=== PATIENT | female | born 1980 | race Caucasian/White ===

== ENCOUNTER 2019-04-22 12:20 | Day surgery (SDC) | payer SELFPAY ==
[2019-04-21 10:27] LABS: ABSOLUTE EOSINOPHILS # (AUTO) 0.2 10^3/uL (0.0-0.6); ABSOLUTE LYMPHOCYTES (AUTO) 1.1 10^3/uL (0.5-4.7); ABSOLUTE MONOCYTES (AUTO) 0.5 10^3/uL (0.1-1.4); BASOPHILS % (AUTO) 0.4 % (0-2); EOSINOPHILS % (AUTO) 2.8 % (0-6); HEMATOCRIT 37.1 % (36.0-47.0); HEMOGLOBIN 12.6 g/dL (12.0-15.5); LYMPHOCYTES % (AUTO) 15.9 % (13-45); MEAN CORPUSCULAR HEMOGLOBIN 30.6 pg (27.0-33.4); MEAN CORPUSCULAR VOLUME 90 fl (80-97); MONOCYTES % (AUTO) 7.4 % (3-13); PLATELET COUNT 183 10^3/uL (150-450); RED BLOOD COUNT 4.13 10^6/uL (3.72-5.28); RED CELL DISTRIBUTION WIDTH 15.2 % (11.5-14.0); SEGMENTED NEUTROPHILS % (AUTO) 73.5 % (42-78); TOTAL CELLS COUNTED % (AUTO) 100 %; WHITE BLOOD COUNT 6.9 10^3/uL (4.0-10.5)
[2019-04-21 10:55] LABS: ANION GAP 7 (5-19); BLOOD UREA NITROGEN 14 mg/dL (7-20); CALCIUM 9.2 mg/dL (8.4-10.2); CARBON DIOXIDE 25 mmol/L (22-30); CHLORIDE 105 mmol/L (98-107); GLUCOSE 100 mg/dL (75-110); POTASSIUM 4.6 mmol/L (3.6-5.0)
[~2019-04-22 12:20] MED LIST: CEFAZOLIN SODIUM 2 GM in DEXTROSE 5%-WATER 100 ML IV PRN; DIPHENHYDRAMINE HCL 50 MG/ML VIAL ONE; HYDROMORPHONE HCL INJ/PF 2 MG/ML AMPULE ONE; LACTATED RINGERS 1000 ML IV PRN; LIDOCAINE 0.5% INJ-PF (5 MG/ML) 50 ML SDV SUBCUT PRN; MIDAZOLAM 2 MG/2 ML INJ ONE; PROPOFOL INJ 200 MG/20 ML VIAL IV ONE
[2019-04-22] MEDS ORDERED: ALBUTEROL SULFATE 0.083% NEB 2.5 MG/3 ML AMPUL NEB ONE (13:28)
[2019-04-22] MEDS ORDERED: SCOPOLAMINE HYDROBROMIDE 1.5 MG PATCH.TD72 ONE (13:28)
[2019-04-22] MEDS ORDERED: MIDAZOLAM 2 MG/2 ML INJ ONE (13:28)
[2019-04-22] MEDS ORDERED: FENTANYL CITRATE INJ/PF 100 MCG/2 ML AMPUL ONE (15:44)
[2019-04-22] MEDS ORDERED: LIDOCAINE 1% INJ-PF (10 MG/ML) 30 ML SDV ONE (15:48)
[2019-04-22] MEDS ORDERED: MEPERIDINE HCL/PF INJ 25 MG/1 ML DISP.SYRIN IV PRN (15:55)
[2019-04-22] MEDS ORDERED: FENTANYL CITRATE INJ/PF 100 MCG/2 ML AMPUL IV PRN ×3 (15:55)
[2019-04-22] MEDS ORDERED: DIPHENHYDRAMINE HCL 50 MG/ML VIAL IV PRN (15:55)
[2019-04-22] MEDS ORDERED: MORPHINE SULFATE 10 MG/ML INJ IV PRN (15:55)
[2019-04-22] MEDS ORDERED: PROMETHAZINE HCL INJ 25 MG/1 ML VIAL IV PRN ×2 (15:55)
[2019-04-22] MEDS ORDERED: BUPIVACAINE HCL 0.5 % INJ/PF 30 ML SDV ONE (16:10)
[2019-04-22] MEDS ORDERED: OXYCODONE-ACETAMINOPHEN 5-325 MG TABLET PO PRN (16:46)
--- NOTE | 2019-04-22 16:47 | Discharge Summary ---
Discharge Summary (SDC) - Discharge Final Diagnosis: Left ring finger middle phalanx fracture Date of Surgery: 04/22/19 Discharge Date: 04/22/19 Treatment or Instructions: Schedule Follow Up w/ Dr. Bandar Michelle @ [facility] for Surgery to be seen in 10-14 days or as scheduled [place]: [place]: [place]: Ice and elevate Keep splint clean/dry/intact, do not remove. If your fingers become numb please unwrap the Scott wrap but leave the splint in place, if the sensation does not return within 30 minutes please return to the emergency department. May begin finger range of motion attempting to make full fist. Please use ibuprofen (Motrin or Advil) 600-800 mg every 8 hours as needed for pain or fever DO NOT TAKE w/ TORADOL may use once TORADOL complete. You may also use acetaminophen (Tylenol) 1000 mg every 4-6 hours as needed for pain or fever. Please be aware that many medications contain acetaminophen, do not exceed a total of 1000 mg of acetaminophen every 6 hours. If ibuprofen and acetaminophen are not sufficient for your pain you may take the Percocet/[place]. Please be aware that the Percocet/[place] does contain Tylenol. Stool softener of choice when on pain medication. USE OF SZMB-ALR-ERCROVE IBUPROFEN: Ibuprofen (Advil, Nuprin, Medipren, Motrin IB) is a medication for fever and pain control. In addition, it has anti- inflammatory effects which may be beneficial, especially in the treatment of injuries. It's best to take ibuprofen with food. Persons with ulcer disease or allergy to aspirin should notify their physician of this before taking ibuprofen. Ibuprofen can be given every four to six hours, for a total of four doses daily. Age Pain or fever dose Antiinflammatory dose 6-8 yr 200 mg (1 tab) 200 mg (1 tab) 9-11 yr 200 mg (1 tab) 200-400 mg (1-2 tab) 11-14 yr 200-400 mg (1-2 tab) 400 mg (2 tab) 15-adult 400 mg (2 tab) 600 mg (3 tab) ORAL NARCOTIC MEDICATION: You have been given a prescription for pain control. This medication is a narcotic. It's best taken with food, as nausea can result if taken on an empty stomach. Don't operate machinery or drive within six hours of taking this medication. Do not combine this medicine with alcohol, or with any medication which can cause sedation (such as cold tablets or sleeping pills) unless you get permission from the physician. Narcotics tend to cause constipation. If possible, drink plenty of fluids and eat a diet high in fiber and fruits. Please be aware that prescription narcotics also have the potential for abuse. People become addicted to these medications because of the general sense of wellbeing that they induce. This feeling along with a significant reduction in tension, anxiety, and aggression provides a stimulating seductive quality to these drugs. Once your pain is under control, we encourage you to discard your unused narcotics. Prescriptions: Oxycodone HCl/Acetaminophen [Percocet 5-325 mg Tablet] 1 tab PO Q6 PRN #25 tab PRN Reason: Discharge Diet: As Tolerated Respiratory Treatments at Home: Deep Breathing/Coughing Discharge Activity: No Lifting Over 10 Pounds, No Lifting/Push/Pulling Report the Following to Your Physician Immediately: Fever over 101 Degrees, Unusual Bleeding, Redness, Swelling, Warmth, Increased Soreness
--- NOTE | 2019-04-22 16:49 | Operative Report ---
Operative Report DATE OF SURGERY: 04/22/19 PREOPERATIVE DIAGNOSIS: Left ring finger middle phalanx fracture POSTOPERATIVE DIAGNOSIS: Same OPERATION: Closed reduction percutaneous pinning left ring finger SURGEON: MIGUEL LLAMAS ANESTHESIA: GA COMPLICATIONS: None ESTIMATED BLOOD LOSS: Minimal PROCEDURE: Indication for above procedure: 39-year-old female who sustained a fall resulting in a torsional injury of her left ring finger patient was seen at the emergency room where x-rays demonstrated oblique fracture and patient was placed in a splint. Upon follow- up patient was seen by an orthopedic provider. Radiographs were reviewed given the amount of angulation and malrotation decision was made to proceed with operative intervention. In the preop more area we discussed treatment options including operative versus nonoperative intervention including open reduction versus closed reduction and percutaneous pinning. After discussing risk benefits and postoperative expectations patient verbalized understanding consented for surgical procedure. Procedure In Detail: Patient was seen and evaluated in the preoperative holding area. The upper extremity was initialized and marked. Patient received 2g of Ancef IV for bacterial prophylaxis. Patient was taken back to the operative room where transferred to the operative table and placed under general anesthesia. Once they were adequately anesthetized a nonsterile tourniquet was placed on the upper extremity. A surgical team debriefing was performed ensuring all instrumentation was available, the surgical procedure was discussed with possible concerns reviewed. The upper extremity was prepped with chlorhexidine and alcohol and draped in a sterile fashion. A timeout was done identifying correct patient, procedure and extremity everyone in attendance agree with this and verbalized no concerns. Digital tourniquet was placed. Close reduction was performed successfully reducing the middle phalanx shaft fracture. There was no evidence of malrotation at completion of reduction no shortening or angulation confirmed on fluoroscopy. A 0.045 K wire was then placed obliquely across the fracture site obtaining fixation in the proximal distal segment. Cross pinning was performed and the other half of the 0.045 K wire was inserted from distal to proximal obtaining fixation of the distal and proximal fragment. At completion stress was placed to the fracture to ensure adequate stability. There is no evidence of malrotation or deformity on examination. K wire was then cut below the skin. Wound was dressed Xeroform 4 x 4's and AlumaFoam splint. 10 cc of 0.5% Marcaine without epi was injected for postoperative pain control. Sponge counts, instrument counts, needle counts were correct. Patient was then awoken from anesthesia. Transferred from the operating room table to the operating room stretcher. There was no intraoperative complications patient tolerated procedure well stable to PACU. Postop plan: Patient follow in the office in 2 weeks. We will obtain radiographs will begin immediate range of motion of the DIP PIP and MP joints at that time.
[2019-04-22] MEDS ORDERED: OXYCODONE-ACETAMINOPHEN 5-325 MG TABLET ONE (17:27)
[2019-04-22 18:26] VITALS: BP 148/90
--- NOTE | 2019-04-22 19:17 | RADIOLOGY REPORT (SQ) ---
EXAM DESCRIPTION: NO CHG FLUORO; FINGER LEFT COMPLETED DATE/TIME: 04/22/2019 7:04 pm REASON FOR STUDY: PERC PINNING; PERC PINNING 4TH DIGIT S62.621A DISP FX OF MIDDLE PHALANX OF LEFT I NDEX FINGER, INI COMPARISON: None. FLUOROSCOPY TIME: 25 seconds 3 images saved to PACS. TECHNIQUE: Intra-operative images acquired during surgical procedure to evaluate progress. NUMBER OF IMAGES: 3 LIMITATIONS: None. FINDINGS: Images reveal percutaneous pinning of ring finger middle phalanx fracture. Please correla te with operative note. IMPRESSION: IMAGE(S) OBTAINED DURING PROCEDURE. COMMENT: Quality ID 145: Final reports for procedures using fluoroscopy that document radiation exp osure indices, or exposure time and number of fluorographic images (if radiation exposure indices are not available) Please consult full operative report of the attending physician for description of the procedure. TECHNICAL DOCUMENTATION: JOB ID: [id number] 2010 [employer]- All Rights Reserved Reading location - IP/workstation name: [email or web address]
--- NOTE | 2019-04-22 19:17 | RADIOLOGY REPORT (SQ) ---
EXAM DESCRIPTION: NO CHG FLUORO; FINGER LEFT COMPLETED DATE/TIME: 04/22/2019 7:04 pm REASON FOR STUDY: PERC PINNING; PERC PINNING 4TH DIGIT S62.621A DISP FX OF MIDDLE PHALANX OF LEFT I NDEX FINGER, INI COMPARISON: None. FLUOROSCOPY TIME: 25 seconds 3 images saved to PACS. TECHNIQUE: Intra-operative images acquired during surgical procedure to evaluate progress. NUMBER OF IMAGES: 3 LIMITATIONS: None. FINDINGS: Images reveal percutaneous pinning of ring finger middle phalanx fracture. Please correla te with operative note. IMPRESSION: IMAGE(S) OBTAINED DURING PROCEDURE. COMMENT: Quality ID [id number]: Final reports for procedures using fluoroscopy that document radiation exp osure indices, or exposure time and number of fluorographic images (if radiation exposure indices are not available) Please consult full operative report of the attending physician for description of the procedure. TECHNICAL DOCUMENTATION: JOB ID: [id number] 2010 [employer]- All Rights Reserved Reading location - IP/workstation name: [email or web address]
== END 2019-04-22 18:25 | disposition home or self-care (01) ==
LOC: OROUT 12:20
PROVIDERS: ATTEND Orthopaedic Surgery
DX: S62.621A Displaced fracture of middle phalanx of left index finger, initial encounter for closed fracture (principal); W19.XXXA Unspecified fall, initial encounter; M79.645 Pain in left finger(s); F17.210 Nicotine dependence, cigarettes, uncomplicated
CPT/HCPCS: 36415; 85025; 81025; 80048; 73140; 26727; C1769; J2250; J3490; J0690; J3010; J7060; J2704; J1170; J1200